=== PATIENT | female | born 1940 | race Caucasian/White ===

== ENCOUNTER 2016-08-05 23:10 | Emergency (ER) | payer MEDICAID ==
[~2016-08-05] VITALS: Ht 154.9 cm; Wt 50.0 kg
[2016-08-06 00:17] LABS: EOSINOPHILS % 2.7 % (0.0-5.0); HEMATOCRIT. 32.4 % (36.0-48.0); HEMOGLOBIN. 10.6 g/dL (12.0-16.0); LYMPHOCYTES % 10.5 % (20.0-50.0); MEAN CORPUSCULAR HEMOGLOBIN 29.4 pg (28.0-32.0); MEAN CORPUSCULAR VOLUME 89.7 fL (81.0-99.0); MEAN PLATELET VOLUME 7.7 fl (7.4-10.4); MONOCYTES % 6.2 % (2.0-8.0); NEUTROPHILS % 79.6 % (40.0-76.0); PLATELET 151 x1000/uL (130-400); RED BLOOD CELL COUNT 3.62 mill/uL (4.2-5.4)
[2016-08-06 00:20] LABS: CHLORIDE 105 mEq/L (98-107)
[2016-08-06 00:28] LABS: INR 0.9; PARTIAL THROMBOPLASTIN TIME 23.1 sec (24.0-34.0); PROTHROMBIN TIME 9.7 sec
[2016-08-06 00:36] LABS: CARBON DIOXIDE 27 mEq/L (21-32)
[2016-08-06 08:43] VITALS: BP 118/68
== END 2016-08-06 08:57 | disposition home or self-care (01) ==
LOC: ER 23:11
DX: I12.0 Hypertensive chronic kidney disease with stage 5 chronic kidney disease or end stage renal disease (principal); E87.70 Fluid overload, unspecified; E11.22 Type 2 diabetes mellitus with diabetic chronic kidney disease; N18.6 End stage renal disease; Z99.2 Dependence on renal dialysis
CPT/HCPCS: 36415; 71010; 80053; 83880; 85025; 85610; 85730; 93005; 99285; C1893; Z7610

== ENCOUNTER 2016-12-31 01:06 | Inpatient (IN) | payer MEDICAID ==
[~2016-12-31] VITALS: Ht 147.3 cm; Wt 51.3 kg
[2016-12-31] VITALS (9 sets, daily range): BP systolic 119–159; BP diastolic 59–89
[2016-12-31 01:48] LABS: HEMATOCRIT. 40.2 % (36.0-48.0); HEMOGLOBIN. 12.7 g/dL (12.0-16.0); MEAN CORPUSCULAR HEMOGLOBIN 29.4 pg (28.0-32.0); MEAN CORPUSCULAR VOLUME 93.2 fL (81.0-99.0); RED BLOOD CELL COUNT 4.32 mill/uL (4.2-5.4); RED CELL DISTRIBUTION WIDTH 18.9 % (11.6-14.6)
[2016-12-31 01:56] LABS: PROTHROMBIN TIME 10.7 sec (9.4-11.6)
[2016-12-31 02:06] LABS: CARBON DIOXIDE 23 mEq/L (21-32); CHLORIDE 104 mEq/L (98-107); TROPONIN I 0.06 ng/mL (0.00-0.04)
[2016-12-31] MEDS ORDERED: ENALAPRIL 2.5MG/2ML VIAL 2ML IV ONE (03:00)
[2016-12-31] MEDS ORDERED: FUROSEMIDE 20MG/2ML VIAL IVP ONE (03:00)
[2016-12-31 03:01] LABS: ATYPICAL LYMPHOCYTES 1
[2016-12-31 04:04] LABS: MEAN PLATELET VOLUME 7.9 fl (7.4-10.4)
[2016-12-31 04:05] LABS: PLATELET 182 x1000/uL (130-400)
[2016-12-31 04:07] LABS: PLATELET ESTIMATE NORMAL
[2016-12-31] MEDS ORDERED: IPRA4AER IH (04:16)
[2016-12-31] MEDS ORDERED: NEPVIT PO (04:16)
[2016-12-31] MEDS ORDERED: REN800 PO (04:16)
[2016-12-31] MEDS ORDERED: FAMO20TA8 PO (04:16)
[2016-12-31] MEDS ORDERED: CARV3.1242 PO (04:16)
[2016-12-31] MEDS ORDERED: LEVE250T2 PO (04:16)
[2016-12-31] MEDS ORDERED: LISI10TA5 PO (04:16)
[2016-12-31] MEDS ORDERED: CLONIDINE 0.1MG TABLET PO PRN (09:30)
[2016-12-31] MEDS ORDERED: MAGNESIUM/ALUMINUM HYDROXIDE/SIMETHICONE 30ML UDC PO PRN (09:30)
[2016-12-31] MEDS ORDERED: IPRATROPIUM/ALBUTEROL 0.5-3(2.5)MG/3ML NEB INH PRN (09:30)
[2016-12-31] MEDS ORDERED: ACETAMINOPHEN 325MG TABLET PO PRN (09:30)
[2016-12-31] MEDS ORDERED: ONDANSETRON HCL 4MG/2ML VIAL IV PRN (09:30)
[2016-12-31] MEDS: SEVELAMER CARBONATE 800 MG TABLET PO SCH ×2 (13:37→17:50)
[2016-12-31 16:35] LABS: CREATINE KINASE MB FRACTION 2.2 ng/mL (0.5-3.6); TROPONIN I 0.22 ng/mL (0.00-0.04)
[2016-12-31] MEDS: FLUTICASONE FUROATE 200 1 INH/CAP ORI SCH (17:57)
[2017-01-01] VITALS (11 sets, daily range): BP systolic 109–140; BP diastolic 60–76
[2017-01-01 00:26] LABS: CREATINE KINASE MB FRACTION 1.5 ng/mL (0.5-3.6); TROPONIN I 0.19 ng/mL (0.00-0.04)
[2017-01-01 06:49] LABS: EOSINOPHILS % 7.3 % (0.0-5.0); HEMATOCRIT. 34.7 % (36.0-48.0); LYMPHOCYTES % 17.3 % (20.0-50.0); MEAN CORPUSCULAR HEMOGLOBIN 28.9 pg (28.0-32.0); MEAN CORPUSCULAR VOLUME 91.3 fL (81.0-99.0); MONOCYTES % 8.9 % (2.0-8.0); NEUTROPHILS % 65.5 % (40.0-76.0); RED CELL DISTRIBUTION WIDTH 18.9 % (11.6-14.6)
[2017-01-01] MEDS: FLUTICASONE FUROATE 200 1 INH/CAP ORI SCH ×2 (08:47→17:59)
[2017-01-01] MEDS: FAMOTIDINE 20MG TABLET PO SCH (08:52)
[2017-01-01] MEDS: SEVELAMER CARBONATE 800 MG TABLET PO SCH ×3 (08:52→18:40)
[2017-01-01] MEDS: LISINOPRIL 10MG TABLET PO SCH (08:53)
[2017-01-01] MEDS: LEVETIRACETAM 250MG TABLET PO SCH (08:53)
[2017-01-01] MEDS: CARVEDILOL 3.125 MG TABLET PO SCH (08:53)
[2017-01-01] MEDS: FOLIC ACID/VITAMIN B COMP W-C TABLET PO SCH (08:53)
[2017-01-01] MEDS ORDERED: FAMOTIDINE(NEO) 1MG/ML SUSP PO SCH (09:00)
[2017-01-01 11:57] LABS: CLARITY URINE CLEAR (CLEAR); COLOR URINE YELLOW (YELLOW); GLUCOSE URINE NEGATIVE (NEGATIVE); KETONES URINE NEGATIVE (NEGATIVE); LEUKOCYTE ESTERASE URINE 1+ (NEGATIVE); NITRITE URINE NEGATIVE (NEGATIVE); OCCULT BLOOD URINE TRACE (NEGATIVE); PH URINE 7.5 (4.5-8.0); PROTEIN URINE 4+ (NEGATIVE); SPECIFIC GRAVITY URINE 1.013 (1.005-1.030); UROBILINOGEN URINE 0.2 E.U./dL (0.2-1.0)
[2017-01-01 14:23] LABS: PLATELET 153 x1000/uL (130-400)
[2017-01-01] MEDS: HEPARIN 5000 UNITS/ML VIAL SUBCUT SCH (21:41)
[2017-01-02] VITALS (10 sets, daily range): BP systolic 100–146; BP diastolic 53–91
[2017-01-02 06:41] LABS: BASOPHILS % 1.4 % (0.0-2.0); EOSINOPHILS % 9.9 % (0.0-5.0); HEMATOCRIT. 30.5 % (36.0-48.0); HEMOGLOBIN. 9.8 g/dL (12.0-16.0); LYMPHOCYTES % 22.9 % (20.0-50.0); MEAN CORPUSCULAR HEMOGLOBIN 28.8 pg (28.0-32.0); MEAN CORPUSCULAR VOLUME 89.9 fL (81.0-99.0); MEAN PLATELET VOLUME 8.2 fl (7.4-10.4); MONOCYTES % 9.4 % (2.0-8.0); NEUTROPHILS % 56.4 % (40.0-76.0); PLATELET 151 x1000/uL (130-400); RED BLOOD CELL COUNT 3.39 mill/uL (4.2-5.4); RED CELL DISTRIBUTION WIDTH 18.3 % (11.6-14.6)
[2017-01-02] MEDS: SEVELAMER CARBONATE 800 MG TABLET PO SCH ×2 (07:59→13:22)
[2017-01-02] MEDS: FLUTICASONE FUROATE 200 1 INH/CAP ORI SCH ×2 (08:40→17:42)
[2017-01-02] MEDS: FOLIC ACID/VITAMIN B COMP W-C TABLET PO SCH ×2 (09:00→11:30)
[2017-01-02] MEDS: HEPARIN 5000 UNITS/ML VIAL SUBCUT SCH (09:00)
[2017-01-02] MEDS: CARVEDILOL 3.125 MG TABLET PO SCH (09:00)
[2017-01-02] MEDS: LEVETIRACETAM 250MG TABLET PO SCH ×2 (09:00→11:32)
[2017-01-02] MEDS: LISINOPRIL 10MG TABLET PO SCH (09:00)
[2017-01-02] MEDS: FAMOTIDINE 20MG TABLET PO SCH ×2 (09:00→11:32)
[2017-01-02] MEDS: DILTIAZEM HCL 30MG TABLET PO SCH ×2 (11:32→17:38)
[2017-01-02] MEDS ORDERED: DILT180C69 PO (12:34)
[2017-01-02] MEDS ORDERED: DIPHENHYDRAMINE 25MG CAPSULE PO NR (15:00)
[2017-01-02] MEDS ORDERED: EPOETIN ALFA 10000UNITS/ML VIAL SUBCUT SCH (21:00)
== END 2017-01-02 17:50 | disposition home or self-care (01) | DRG 133 ==
LOC: EDUNIT# 01:06 → EDBD 01:06 → ER 01:06 → 5EST 02:43 → EDBEDREQTM 02:46 → EDBEDREQ 02:46 → ENRESERV 03:05 → 5EST 07:04
PROVIDERS: ADMIT Internal Medicine; ATTEND Internal Medicine
PROC: 5A09357 Assistance with Respiratory Ventilation, Less than 24 Consecutive Hours, Continuous Positive Airway Pressure (ICD-10-PCS; principal; 2016-12-31)
DX: J96.01 Acute respiratory failure with hypoxia (principal); I50.33 Acute on chronic diastolic (congestive) heart failure; N18.6 End stage renal disease; E11.22 Type 2 diabetes mellitus with diabetic chronic kidney disease; J44.9 Chronic obstructive pulmonary disease, unspecified; I27.20 Pulmonary hypertension, unspecified; F03.90 Unspecified dementia, unspecified severity, without behavioral disturbance, psychotic disturbance, mood disturbance, and anxiety; I13.2 Hypertensive heart and chronic kidney disease with heart failure and with stage 5 chronic kidney disease, or end stage renal disease; G40.909 Epilepsy, unspecified, not intractable, without status epilepticus; F41.9 Anxiety disorder, unspecified; F32.9 Major depressive disorder, single episode, unspecified; Z99.2 Dependence on renal dialysis; Z91.15 Patient's noncompliance with renal dialysis; Z86.73 Personal history of transient ischemic attack (TIA), and cerebral infarction without residual deficits
CPT/HCPCS: 36415; 71010; 80048; 80053; 80061; 81001; 82550; 82553; 83735; 83880; 84443; 84484; 85025; 85610; 86850; 86900; 93005; 93306; 93970; 94640; 94660; 96374; 96375; 99285; J1644; J1940; J3490; J7030; J7620; Q0163